=== PATIENT | male | born 1980 | race Caucasian/White ===

== ENCOUNTER 2020-11-18 20:46 | Emergency (ER) | payer MEDICARE, OTHER | END 2020-11-19 01:05 | disposition home or self-care (01) | LOC: ER1 20:46 | DX: R51.9 Headache, unspecified (principal); Z88.0 Allergy status to penicillin; Z88.5 Allergy status to narcotic agent; Z79.899 Other long term (current) drug therapy; Z86.69 Personal history of other diseases of the nervous system and sense organs | CPT/HCPCS: 70450; 96374; 96375; 99284; J1200; J1885; J2765 ==

== ENCOUNTER 2020-12-08 23:49 | Emergency (ER) | payer MEDICARE, OTHER ==
[2020-12-09 01:37] LABS: HEMOGLOBIN 14.8 gm/dl (14.0-17.5); RED BLOOD COUNT 4.71 M/UL (4.20-5.50); WHITE BLOOD COUNT 13.9 K/UL (4.5-11.0)
[2020-12-09 02:08] LABS: BUN/CREATININE RATIO 19 (0-10)
== END 2020-12-09 03:18 | disposition home or self-care (01) ==
LOC: ER1 23:49
PROVIDERS: Internal Medicine
DX: R22.0 Localized swelling, mass and lump, head (principal); I10 Essential (primary) hypertension; Z86.73 Personal history of transient ischemic attack (TIA), and cerebral infarction without residual deficits
CPT/HCPCS: 70450; 71045; 80053; 82550; 82553; 84484; 85025; 93005; 96374; 99285; J0360; J0780; J1200

== ENCOUNTER 2022-01-31 12:14 | Emergency (ER) | payer MEDICARE, OTHER | END 2022-01-31 17:55 | disposition home or self-care (01) | LOC: ER1 12:14 | DX: G43.909 Migraine, unspecified, not intractable, without status migrainosus (principal); I10 Essential (primary) hypertension | CPT/HCPCS: 70450; 96372; 96374; 96375; 99283; J1200; J1885; J2765; J3030; J3475; J7030 ==